=== PATIENT | male | born 1985 ===

== ENCOUNTER 2017-09-01 02:27 | Emergency (ER) | payer SELFPAY ==
[2017-09-01 02:47] VITALS: RESP 20
[2017-09-01] MEDS ORDERED: Lidocaine 1%/Epinephrine 1:100000 30 ml vial IJ STA (02:48)
[2017-09-01] MEDS ORDERED: Tdap Vaccine 0.5 ml Vial (10-64 yrs) IM ONE ×2 (02:49→02:55)
[2017-09-01] MEDS ORDERED: Lidocaine Hydrochloride 0 ML INJ ONE (02:55)
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
[2017-09-01 03:54] VITALS: BP 132/74; PULSE 95; TEMP 97.2
[2017-09-01 04:07] VITALS: O2SAT 97
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
== END 2017-09-01 03:53 | disposition home or self-care (01) ==
LOC: C.ER 02:27
DX: S01.81XA Laceration without foreign body of other part of head, initial encounter (principal); Y08.89XA Assault by other specified means, initial encounter; Y92.89 Other specified places as the place of occurrence of the external cause